=== PATIENT | male | born 1950 | race Caucasian/White ===

== ENCOUNTER 2017-07-16 16:46 | Emergency (ER) | payer OTHER ==
[~2017-07-16] VITALS: Ht 180.3 cm; Wt 92.1 kg
[2017-07-16] MEDS ORDERED: INDAPAMIDE1.25 MG PO (17:07)
[2017-07-16] MEDS ORDERED: HYZAAR 50-12.51 EACH PO (17:08)
[2017-07-16] MEDS ORDERED: CARDIZEM CD180 MG PO (17:08)
[2017-07-16] MEDS ORDERED: LOPRESSOR50 PO (17:08)
[2017-07-16 17:51] LABS: ABSOLUTE BASOPHILS 0.1 thou/uL (0.0-0.2); ABSOLUTE EOSINOPHILS 0.3 thou/uL (0.0-0.7); ABSOLUTE LYMPHOCYTES 2.6 thou/uL (0.8-5.3); ABSOLUTE MONOCYTES 0.9 thou/uL (0.0-1.2); ABSOLUTE NEUTROPHILS 2.2 thou/uL (1.6-8.1); BASOPHILS 0.9 %; EOSINOPHILS 4.8 %; HEMOGLOBIN 13.9 gm/dL (14.0-18.0); LYMPHOCYTES 43.3 %; MCH 30.6 pg (26.0-34.0); MCHC 34.7 g/dL (28.0-37.0); MCV 88.4 fL (80.0-100.0); MONOCYTES 14.6 %; MPV 7.1 fl. (7.2-11.1); NUCLEATED RBCS 0 /100WBC; PLATELET COUNT* 177 thou/uL (150-400); POLYS 36.4 %; RBC 4.52 mil/uL (4.50-6.00); RDW-CV 13.2 % (10.5-14.5)
[2017-07-16 17:59] LABS: ANION GAP 8 mmol/L (7-16); BUN 15 mg/dL (7-18); CALCIUM 9.2 mg/dL (8.5-10.1); CHLORIDE 101 mmol/L (98-107); CO2 31 mmol/L (21-32); CREATININE 1.1 mg/dL (0.6-1.3); GLUCOSE 119 mg/dL (70-99); POTASSIUM 3.5 mmol/L (3.5-5.1); SODIUM 140 mmol/L (136-145)
[2017-07-16 18:01] LABS: APTT 25.9 Seconds (25.0-31.3); PROTIME 10.1 Seconds (9.20-11.50)
[2017-07-16] MEDS ORDERED: ASPIR 8181 MG PO (18:05)
[2017-07-16 18:06] LABS: ALBUMIN 3.9 g/dL (3.4-5.0); ALKALINE PHOSPHATASE 85 U/L (46-116); LIPASE 202 U/L (73-393); SGOT 22 U/L (15-37); SGPT 35 U/L (30-65); TOTAL BILIRUBIN 0.4 mg/dL (<0.1-1.0); TOTAL PROTEIN 7.9 g/dL (6.4-8.2); TROPONIN-I LEVEL <0.06 ng/mL (<0.06)
[2017-07-16 20:32] VITALS: BP 176/89
--- NOTE | 2017-07-18 06:14 | EKG ---
[place] [address] ELECTROCARDIOGRAM REPORT Name: MISAEL GOMEZ Room: [facility]#: [id number] Admission: 07/16/17 Attend Phys: Discharge: 07/16/17 Date of : 54 Report #: [id number] THIS REPORT FOR: //name// [facility] ED Test Date: 2017-07-16 Test Time: 17:56:12 Pat Name: MISAEL GOMEZ Department: Room: Gender: Neuropathologist: Remy JOHNSON : 1950 Requested By: Jennie Abarca Order Number: [id number] MD: Lorne Licona Measurements Intervals [place] Rate: 70 P: 40 VA: 161 QRS: -27 QRSD: 95 T: 17 QT: 411 QTc: 444 Interpretive Statements Sinus rhythm Borderline left axis deviation Abnormal R-wave progression, late transition Baseline wander in lead(s) V2 No previous ECG available for comparison Electronically Signed On 07-18-2017 6:14:36 DEPUTY CITY CLERK by Lorne Licona [email or web address] <ELECTRONICALLY SIGNED> By: Lorne Licona MD, [facility] 07/18/17 0614 1756 175 Lorne Licona MD, FACC /EPI
== END 2017-07-16 20:32 | disposition home or self-care (01) ==
LOC: M.ERS 16:46
PROVIDERS: Physician Assistant
DX: I10 Essential (primary) hypertension (principal); E11.9 Type 2 diabetes mellitus without complications; Z88.5 Allergy status to narcotic agent; Z88.8 Allergy status to other drugs, medicaments and biological substances

== ENCOUNTER 2017-07-20 21:03 | Emergency (ER) | payer OTHER ==
[~2017-07-20] VITALS: Ht 180.3 cm; Wt 90.7 kg
[~2017-07-20 21:03] MED LIST: ASPIR 8181 MG PO; CARDIZEM CD180 MG PO; HYZAAR 50-12.51 EACH PO; INDAPAMIDE1.25 MG PO; LOPRESSOR50 PO
[2017-07-20] MEDS ORDERED: LABETALOL HCL100 MG PO (21:11)
[2017-07-20] MEDS ORDERED: INDAPAMIDE2.5 MG PO (21:11)
[2017-07-20] MEDS ORDERED: HYZAAR 100-251 EACH PO (22:01)
[2017-07-20] MEDS ORDERED: LABETALOL HCL200 MG PO (22:01)
[2017-07-20 22:14] VITALS: BP 168/84
== END 2017-07-20 22:59 | disposition home or self-care (01) ==
LOC: M.ERS 21:03
DX: I10 Essential (primary) hypertension (principal); E11.9 Type 2 diabetes mellitus without complications; Z88.5 Allergy status to narcotic agent; Z88.8 Allergy status to other drugs, medicaments and biological substances

== ENCOUNTER 2019-04-07 22:19 | Inpatient (IN) | payer OTHER ==
[~2019-04-07] VITALS: Ht 180.3 cm; Wt 91.2 kg
[2019-04-07 22:19] VITALS: BP 152/89
[~2019-04-07 22:19] MED LIST changes: +HYZAAR 100-251 EACH PO; +INDAPAMIDE2.5 MG PO; +LABETALOL HCL100 MG PO; +LABETALOL HCL200 MG PO
[2019-04-07] MEDS ORDERED: METFORMIN HCL500 M3 PO (22:26)
[2019-04-07 22:40] LABS: ABSOLUTE BASOPHILS 0.1 thou/uL (0.0-0.2); ABSOLUTE EOSINOPHILS 0.3 thou/uL (0.0-0.7); ABSOLUTE LYMPHOCYTES 3.8 thou/uL (0.8-5.3); ABSOLUTE MONOCYTES 1.1 thou/uL (0.0-1.2); ABSOLUTE NEUTROPHILS 4.2 thou/uL (1.6-8.1); BASOPHILS 0.8 %; EOSINOPHILS 3.5 %; HEMATOCRIT 39.2 % (42.0-52.0); MCH 30.9 pg (26.0-34.0); MCHC 35.8 g/dL (28.0-37.0); MCV 86.5 fL (80.0-100.0); MONOCYTES 11.1 %; MPV 7.5 fl. (7.2-11.1); NUCLEATED RBCS 0 /100WBC; PLATELET COUNT* 251 thou/uL (150-400); POLYS 44.6 %; RBC 4.53 mil/uL (4.50-6.00); RDW-CV 13.1 % (10.5-14.5); WBC 9.5 thou/uL (4.0-11.0)
[2019-04-07 22:49] LABS: PROTIME 10.1 Seconds (9.20-11.50)
[2019-04-07 22:52] LABS: CALCIUM 9.5 mg/dL (8.5-10.1); CREATININE 1.2 mg/dL (0.6-1.3)
[2019-04-07 23:04] LABS: TOTAL BILIRUBIN 0.4 mg/dL (<0.1-1.0); TOTAL PROTEIN 7.6 g/dL (6.4-8.2)
[2019-04-07 23:05] LABS: POTASSIUM 2.9 mmol/L (3.5-5.1)
[2019-04-08] VITALS (18 sets, daily range): BP systolic 120–166; BP diastolic 65–132
[2019-04-08 08:47] LABS: CHOLESTEROL 183 mg/dL (<200); HDL CHOLESTEROL 44 mg/dL (>40); LDL CHOLESTEROL 112 mg/dL (<100); SERUM ASSESSMENT Clear; TC:HDL 4.2 Ratio (Not establshd); TRIGLYCERIDE 137 mg/dL (<150); VLDL 27 mg/dL (<40)
--- NOTE | 2019-04-08 13:43 | NUR ---
PT RECEIVED FROM ER AT 0800, A&O X4. VSS. CHEST PAIN UNDER CONTROL AT THE MOMENT, PT HAS NITRO PATCH. ADMISSION PROCESS COMPLETED. VOIDS PER URINAL. SELF CARE BATH COMPLETED. NEW IV INSERTED IN LT HAND, 18G. NS AT 100 MLS/HR. PT TO CATH AT 1200.
[2019-04-08 14:51] LABS: AMP/METHAMP Negative (Negative); BARBITURATES Negative (Negative); BENZODIAZEPINES POSITIVE (Negative); COCAINE Negative (Negative); METHADONE Negative (Negative); OPIATES Negative (Negative); PCP Negative (Negative); THC Negative (Negative)
--- NOTE | 2019-04-08 15:34 | NUR ---
RECEIVED FROM CATH AT 1400, CATH SITE CDI, DISTAL PULSES PRESENT. DENIES PAIN. VSS. VOIDED POST CATH. REPORT GIVEN TO GALA ZARAGOZA,TELE.
--- NOTE | 2019-04-08 16:00 | NUR ---
PT TRANSFERRED FROM ICU 2 AT 1530. PT IS ALERT AND ORIENTED X4. DENIES PAIN. VSS. ON ROOM AIR. PT GIVEN WATER AND APPLESAUCE, TOLERATING WITHOUT DIFFICULTY. SEE POST STENT VITALS FOR OTHER DETAILS. FAMILY AT BEDSIDE, CALL LIGHT WITHIN REACH, WILL CONTINUE PLAN OF CARE
--- NOTE | 2019-04-08 17:18 | EKG ---
[place] [address] ELECTROCARDIOGRAM REPORT Name: MISAEL GOMEZ Room: [address] ADM IN .R.#: [id number] Admission: 04/08/19 Attend Phys: Kiara Everett MD Discharge: Date of : 54 Report #: [id number] THIS REPORT FOR: //name// [facility] ED Test Date: 2019-04-07 Test Time: 22:26:07 Pat Name: MISAEL GOMEZ Department: Room: [facility] Gender: M Shooter'S Helper: Dave Puckett : 1950 Requested By: Lilian Hyman Order Number: [id number] MD: Lorne Licona Measurements Intervals [place] Rate: 57 P: 63 [place]: 182 QRS: -31 QRSD: 105 T: 29 QT: 431 QTc: 420 Interpretive Statements Sinus rhythm Left axis deviation Borderline repolarization abnormality Baseline wander in lead(s) V4,V5 Compared to ECG 07/16/2017 17:56:12 No significant changes Electronically Signed On 04-08-2019 17:18:50 REINFORCED IRONWORKER by Lorne Licona [email or web address] <ELECTRONICALLY SIGNED> By: Lorne Licona MD, FACC 04/08/19 1718 2226 2226 Lorne Licona MD, FAC /EPI
--- NOTE | 2019-04-08 17:31 | EKG ---
[place] [address] ELECTROCARDIOGRAM REPORT Name: MISAEL GOMEZ Room: [address] ADM IN M.R.#: [id number] Admission: 04/08/19 Attend Phys: Kiara Everett MD Discharge: Date of : 54 Report #: [id number] THIS REPORT FOR: //name// [facility] Test Date: 2019-04-08 Test Time: 16:14:02 Pat Name: MISAEL GOMEZ Department: Room: [address] Gender: M Image Assembler: : 1950 Requested By: Lorne Licona Order Number: [id number] Reading MD: Lorne Licona Measurements Intervals [place] Rate: 56 P: 37 NM: 166 QRS: -26 QRSD: 100 T: -18 QT: 439 QTc: 424 Interpretive Statements Sinus rhythm Borderline left axis deviation Borderline repolarization abnormality Compared to ECG 07/16/2017 17:56:12 No significant changes Electronically Signed On 04-08-2019 17:31:42 PHYSICIAN SCIENTIST by Lorne Licona [email or web address] <ELECTRONICALLY SIGNED> By: Lorne Licona MD, [facility] 04/08/19 1731 1614 1614 Lorne Licona MD, FAC /EPI
[2019-04-09] VITALS: BP 140/78
[2019-04-09 02:06] LABS: GLYCOHEMOGLOBIN (HGB A1C) 6.8 % (4.8-5.6)
[2019-04-09 05:49] LABS: HEMATOCRIT 37.3 % (42.0-52.0); HEMOGLOBIN 13.2 gm/dL (14.0-18.0); MCH 31.1 pg (26.0-34.0); MCHC 35.4 g/dL (28.0-37.0); MCV 87.7 fL (80.0-100.0); MPV 7.8 fl. (7.2-11.1); RBC 4.26 mil/uL (4.50-6.00); RDW-CV 13.5 % (10.5-14.5); WBC 10.5 thou/uL (4.0-11.0)
[2019-04-09 06:04] LABS: ALBUMIN 3.5 g/dL (3.4-5.0); CALCIUM 8.6 mg/dL (8.5-10.1); CREATININE 1.2 mg/dL (0.6-1.3); POTASSIUM 3.1 mmol/L (3.5-5.1); TOTAL BILIRUBIN 0.4 mg/dL (<0.1-1.0); TOTAL PROTEIN 6.8 g/dL (6.4-8.2)
--- NOTE | 2019-04-09 06:26 | NUR ---
PT C/O NUMBNESS TO RIGHT ARM THAT I HAD BELIEVED TO BE RELATIVE TO EXSISTING CONDITION. UPON FURTHER ASSESSMENT THIS WAS NEW ONSET. PT THEN REPORTED THAT HE MISUNDERSTOOD HOW LONG HE HAD TO LAY FLAT AND AFTER EDUCATED AGAIN WAS ABLE TO GAIN COMFORT AND INCREASED SENSATION IN RIGHT ARM. PT DRESSING TO R GROIN HAS REMANIED INTACT, CLEAN AND DRY. VSS. PT PROGRESSING TOWRADS GOALS.
[2019-04-09 07:00] VITALS: BP 142/80
--- NOTE | 2019-04-09 08:18 | CON ---
[address] [address] CONSULTATION Name: MISAEL GOMEZ LORNE Room: [address] IN M.R.#: [id number] Admission: 04/08/19 Attend Phys: Kiara Everett MD Discharge: Date of : 54 Report #: [id number] THIS REPORT FOR: //name// CC: Kiara Dawn MD DATE OF SERVICE: 04/08/2019 INDICATION: Chest pain. HISTORY OF PRESENT ILLNESS: The patient is a very pleasant 68-year-old gentleman with no prior cardiac history. Risk factors include family history of coronary artery disease, hypertension and type 2 diabetes mellitus. He is a nonsmoker. Cholesterol status unknown. For the last couple of weeks, he has been having exertional midsternal chest pressure, radiating to both arms, causing significant arm weakness. The discomfort is relieved with rest. The patient was instructed by his primary physician to report to the Emergency Room should he have recurrence, which he did last night. Again, these symptoms were limited in duration. His troponins are unremarkable. EKG shows sinus rhythm with subtle ST-segment depression in the anterolateral leads. At the time of interview, he is pain free. Only other complaint at this time is that he has been having some indigestion for some time, which he takes Tums for. PAST SURGICAL HISTORY: There is no past surgical history. PAST MEDICAL HISTORY: Hypertension and type 2 diabetes mellitus. SOCIAL HISTORY: The patient does not smoke. He does not drink alcohol. He is . His is in attendance with him. FAMILY HISTORY: The patient's father had myocardial infarction. PHYSICAL EXAMINATION: VITAL SIGNS: Stable. Blood pressure 142/72, pulse 54 and regular. GENERAL: This is a pleasant gentleman who is in no distress. Mood and affect appropriate. HEENT: Extraocular muscles intact. Mucous membranes are moist. NECK: Shows no jugular venous distention. There are no carotid bruits. CHEST: Reveals clear lung pratt. CARDIOVASCULAR: Reveals a regular rhythm without gallop or murmur. ABDOMEN: Reveals normal bowel sounds. The abdomen is soft, nontender. EXTREMITIES: [place] [address] CONSULTATION Name: MISAEL GOMEZ Room: [address] IN [facility]#: [id number] Admission: 04/08/19 Attend Phys: Kiara Everett MD Discharge: Date of : 54 Report #: [id number] LABORATORY DATA: EKG shows sinus rhythm with subtle ST-segment depression in the anterolateral leads. There is no ST elevation. Chest x-ray shows no acute process. Labs are reviewed. Sodium 140, potassium 2.9, chloride 101, bicarb 29, BUN 19, creatinine 1.2, serum glucose 106. LFTs are within normal limits. Troponins less than 0.06 on 2 separate occasions. NT-proBNP 112. White blood cell count 9.5, hemoglobin 14.0, platelet count 251,000. IMPRESSION AND RECOMMENDATIONS: 1. Typical angina with unstable in characteristics. We will proceed with angiography and intervention as directed. Start daily aspirin. 2. Lipid status unknown, request a fasting lipid profile. 3. Hypertension, adequately controlled presently. We will adjust medications post-catheterization if needed. 4. Type 2 diabetes per primary physician. The patient is on metformin. This will be held transiently post-catheterization. 5. Hypokalemia. We will correct with oral potassium this morning. <ELECTRONICALLY SIGNED> By: Lorne Licona MD, FACC 04/09/19817 0838Micestelita Licona MD, FACC /nt
--- NOTE | 2019-04-09 08:28 | NUR ---
INITAL ASSESSMENT COMPLETED CHARTED. VSS. TRACING SR ON MONITOR. PT C/O RIGHT ARM WEAKNESS, MS NOTIFIED. PT DENIES PAIN, SOA, N/V/D. PT DENIES ANY FURTHER NEEDS AT THIS TIME. HOURLY ROUNDING IN PLACE FOR PT SAFETY. CLWR.
[2019-04-09 09:13] LABS: HEMOGLOBIN 13.6 gm/dL (14.0-18.0); MCH 31.1 pg (26.0-34.0); MCHC 35.8 g/dL (28.0-37.0); MCV 86.9 fL (80.0-100.0); MPV 7.2 fl. (7.2-11.1); RBC 4.37 mil/uL (4.50-6.00); RDW-CV 13.2 % (10.5-14.5); WBC 14.3 thou/uL (4.0-11.0)
[2019-04-09 09:21] LABS: CALCIUM 8.9 mg/dL (8.5-10.1); CREATININE 1.5 mg/dL (0.6-1.3); POTASSIUM 3.4 mmol/L (3.5-5.1)
[2019-04-09 09:24] LABS: APTT 23.6 Seconds (25.0-31.3); INR 1.1
[2019-04-09 09:31] LABS: ALBUMIN 3.7 g/dL (3.4-5.0); TOTAL BILIRUBIN 0.4 mg/dL (<0.1-1.0); TOTAL PROTEIN 7.2 g/dL (6.4-8.2)
--- NOTE | 2019-04-09 10:39 | EKG ---
[place] [address] ELECTROCARDIOGRAM REPORT Name: MISAEL GOMEZ Room: [address] ADM IN M.R.#: [id number] Admission: 04/08/19 Attend Phys: Kiara Everett MD Discharge: Date of : 54 Report #: [id number] THIS REPORT FOR: //name// [facility] Test Date: 2019-04-09 Test Time: 05:50:10 Pat Name: MISAEL GOMEZ Department: Room: [address] Gender: M Bucket Turner: CKLOTZ : 1950 Requested By: Lorne Licona Order Number: [id number] Monica MD: Harvey Lemus Measurements Intervals [place] Rate: 72 P: 37 [place]: 165 QRS: -23 QRSD: 101 T: -70 QT: 429 QTc: 470 Interpretive Statements Sinus rhythm Borderline left axis deviation Repol abnrm suggests ischemia, lateral leads Compared to ECG 04/08/2019 16:14:02 Possible ischemia now present Electronically Signed On 04-09-2019 10:39:38 MEETING/EVENT PLANNER by Harvey Lemus [email or web address] <ELECTRONICALLY SIGNED> By: Harvey Lemus MD, [facility] 04/09/19 1039 0550 0550 Harvey Lemus MD, [facility] /EPI
--- NOTE | 2019-04-09 14:05 | 2DMMODE ---
[place] [address] 2 D/M-MODE ECHOCARDIOGRAM Name: MISAEL GOMEZ Room: [address] IN [facility]#: [id number] Admission: 04/08/19 Attend Phys: Kiara Everett, Discharge: Date of : 54 Date of Service: 04/09/19 1405 Report #: [id number] THIS REPORT FOR: //name// APPROVED REPORT Study performed: 04/09/2019 10:59:00 EXAM: Comprehensive 2D, Doppler, and color-flow Echocardiogram Patient Location: In-Patient Room #: 200 Status: routine BSA: 2.11 HR: 72 bpm BP: 142/80 mmHg Rhythm: NSR Other Information Study Quality: Good Indications CVA/TIA Chest Pain Echo Enhancing Agent Indication: Rule out Shunt Agent(s) / Amount(s) Used: Agitated Saline 10 cc 2D Dimensions IVSd: 14.89 (7-11mm) LVOT Diam: 19.56 (18-24mm) LVDd: 42.18 mm PWd: 11.55 (7-11mm) Ascending Ao: 34.52 (22-36mm) LVDs: 21.09 (25-40mm) Aortic Root: 32.44 mm Volumes Left Atrial Volume (Systole) LA ESV Index: 34.70 mL/m2 Aortic Valve AoV Peak Matthew.: 1.75 m/s AO Peak Gr.: 12.22 mmHg LVOT Max P.70 mmHg AO Mean Gr.: 6.97 mmHg LVOT Mean P.98 mmHg LVOT Max V: 1.39 m/s AO V2 VTI: 34.44 cm LVOT Mean V: 0.78 m/s JACOB (VTI): 2.94 cm2 LVOT V1 VTI: 33.66 [place] [address] 2 D/M-MODE ECHOCARDIOGRAM Name: MISAEL GOMEZ Room: [address] IN ..#: [id number] Admission: 04/08/19 Attend Phys: Kiara Everett, Discharge: Date of : 54 Date of Service: 04/09/19 1405 Report #: [id number] Mitral Valve E/A Ratio: 0.79 MV Decel. Time: 310.79 ms MV E Max Matthew.: 0.56 m/s MV PHT: 90.13 ms MVA (PHT): 2.44 cm2 TDI E/Lateral E': 6.22 E/Medial E': 3.73 Medial E' Matthew.: 0.15 m/s Lateral E' Matthew.: 0.09 m/s Pulmonary Valve PV Peak Matthew.: 1.34 m/s PV Peak Gr.: 7.16 mmHg Tricuspid Valve RAP Estimate: 5.00 mmHg TR Peak Gr.: 24.26 mmHg RVSP: 29.00 mmHg PA Pressure: 29.00 mmHg Left Ventricle The left ventricle is normal size. There is normal LV segmental wall motion. Borderline concentric left ventricular hypertrophy. Left ventricular systolic function is normal. The left ventricular ejection fraction is within the normal range. LVEF is 60-65%. Grade I - abnormal relaxation pattern. Right Ventricle The right ventricle is normal size. The right ventricular systolic function is normal. Atria The left atrium size is normal. Interatrial septum is intact without evidence of ASD or PFO. The right atrium size is normal. Aortic Valve Mild aortic valve sclerosis. No aortic regurgitation is present. There is no aortic valvular stenosis. Mitral Valve The mitral valve is normal in structure. There is no mitral valve regurgitation noted. No evidence of mitral valve stenosis. Tricuspid Valve The tricuspid valve is [place] [address] 2 D/M-MODE ECHOCARDIOGRAM Name: MISAEL GOMEZ Room: [address] IN ..#: [id number] Admission: 04/08/19 Attend Phys: Kiara Everett, Discharge: Date of : 54 Date of Service: 04/09/19 1405 Report #: [id number] regurgitation. No pulmonary hypertension. Pulmonic Valve The pulmonary valve is normal in structure. There is no pulmonic valvular regurgitation. Great Vessels The aortic root is normal in size. IVC is normal in size and collapses >50% with inspiration. Pericardium There is no pericardial effusion. <Conclusion> The left ventricle is normal size. Borderline concentric left ventricular hypertrophy. Left ventricular systolic function is normal. The left ventricular ejection fraction is within the normal range. LVEF is 60-65%. Grade I - abnormal relaxation pattern. The right ventricle is normal size. The left atrium size is normal. Mild aortic valve sclerosis. No aortic regurgitation is present. There is no aortic valvular stenosis. The mitral valve is normal in structure. The tricuspid valve is normal in structure. IVC is normal in size and collapses >50% with inspiration. There is no pericardial effusion. There is normal LV segmental wall motion. Interatrial septum is intact without evidence of ASD or PFO. <ELECTRONICALLY SIGNED> By: Harvey Lemus MD, FACC 04/09/19 1405 1405 1405 Harvey Lemus MD, FACC /INF
--- NOTE | 2019-04-09 14:53 | NUR ---
Pt is A&O. Resides at home with . Normally active and independent. No DME. No hx of HH or SNF. Goal is home at pa. Following.
--- NOTE | 2019-04-09 15:36 | CARD ---
[address] [address] CARDIAC CATH REPORT Name: MISAEL GOMEZ Room: 200- ADM IN M.R.#: [id number] Admission: 04/08/19 Attend Phys: Kiara Everett MD Discharge: Date of : 54 Report #: [id number] THIS REPORT FOR: //name// ADDENDUM APPROVED REPORT Study performed: 04/08/2019 11:44:56 Patient Details Patient Status: In-Patient Room #: The patient is a 68 year-old male Event Personnel Lorne Licona Professional Development Instructor, Harvey Lemus Cnc Machine Programmer, Candy Taylor RN Supply Specialist, Robert Hussein VALUE ANALYSIS COORDINATOR Scrub, Ayana Dubose RTR Monitor Procedures Performed Art Access - R femoral artery* Left Heart Cath w/or w/o Coronaries [id number] [facility] w/wo Plasty Single CIRC [id number] [facility] Place w/wo Plasty Single RCA [id number] Hemostasis w/ Angioseal Admission/Lab Medications/Medications given during procedure Angiomax IV 13.9 mg per kg, Angiomax Drip IV 30.8 ml per hr, Solumedrol IV 125 mg, Atropine IV 1 ml, Aspirin PO 162 mg, Effient PO 60 mg, Nitroglycerin IC bolus 350 mcg total Procedure Narrative The patient was brought electively to the Cardiac Catheterization Laboratory and was prepped and draped in a sterile manner. The right femoral groin area was infiltrated with 2% Lidocaine subcutaneous anesthesia. A 6fr Ultimum Sheath sheath was inserted into the right femoral artery. Coronary angiography was performed using coronary diagnostic catheters. The right coronary system was accessed and visualized with a 6F JR4 catheter. The left coronary system was accessed and visualized with a 6F JL4 catheter. The left ventricle was accessed and visualized with a 6F Pigtail catheter. The patient tolerated the procedure well and there were no complications associated with the procedure. Intraoperative Conscious Sedation Sedation start time: 12:32 Case end Time: 13:35 Fentanyl 100 mcg Versed 2 mg Fluoro Time: 17.1 [place] [address] CARDIAC CATH REPORT Name: MISAEL GOMEZ Room: [address] IN [facility]#: [id number] Admission: 04/08/19 Attend Phys: Kiara Everett MD Discharge: Date of : 54 Report #: [id number] Dose: DAP [id number] cGycm2 2376 mGy Contrast Type and Amount: Visipaque 390 ml Coronary Angiography The patient's coronary anatomy is right dominant. Diagnostic Cath Left Main The left main coronary artery is normal and bifurcates into a left anterior descending and circumflex coronary artery. LAD Left anterior descending coronary artery is mildly plaqued proximally and has a 70% narrowing at the takeoff of a second diagonal branch. Diagonal 1 The first diagonal branch is normal. Diagonal 2 The second diagonal branch has a proximal 70% ostial stenosis. Circumflex The circumflex was coronary artery is mildly plaqued proximally and approximately 30% narrowing distally. OM1 The first obtuse marginal branch is moderately plaqued up to 40% proximally. OM2 The large branched second obtuse marginal branch has a long area of severe disease proximally up to 99%. OM3 A small third obtuse marginal branch is normal. Right Coronary The right coronary artery has a long area of severe stenosis up to 99% just after the takeoff of an acute marginal branch. R PDA PDA is mildly plaqued without hemodynamically significant stenoses. RPLV A small posterior lateral LV branch is free of significant disease. Left Ventriculography The left ventricle is normal in size with normal contractility. The left ventricular ejection fraction is estimated to be 55-60%. Hemodynamics The aortic pressure is 143/62 mmHg with a mean of 67 mmHg. The left ventricular pressure is 153/12 mmHg with a mean of mmHg. The left ventricular end diastolic pressure is 22 mmHg. PCI Technique Lesion Anticoagulation was achieved with Angiomax. Patient was preloaded with Angiomax IV 13.9 mg per kg. Percutaneous coronary intervention was performed on the second marginal branch of the circumflex. The lesion stenosis prior to intervention was 99% with SVETLANA 3 flow. A 6F XB LAD 3.5 Guide Catheter was used to engage [place] [address] CARDIAC CATH REPORT Name: MISAEL GOMEZ Room: [address] IN M.R.#: [id number] Admission: 04/08/19 Attend Phys: Kiara Everett MD Discharge: Date of : 54 Report #: [id number] 190cm Interventional Guidewire was used to cross the lesion. BALLOON DILATION A Balloon catheter Mini Trek RX 2.0 X 12 was inserted and inflated up to 10.00atm for 14seconds. Additional Inflation: 12.00atm for 10seconds. Additional Inflation: 12.00atm for 9seconds. STENT DEPLOYMENT A drug-eluting stent Jerson RX Stent 2.0X30mm was inserted and inflated up to 12.00atm for 11seconds. Additional Inflation: 15.00atm for 12seconds. Additional Inflation: 15.00atm for 10seconds. POST STENT DEPLOYMENT BALLOON DILATION A Balloon catheter NC Trek RX 2.25x12 was inserted and inflated up to 10.00atm for 12seconds. Additional Inflation: 12.00atm for 7seconds. Additional Inflation: 14.00atm for 6seconds. Final angiography reveals 0 % stenosis with SVETLANA 3 flow. STENT DEPLOYMENT A stent was inserted and inflated up to marium for seconds. Additional Inflation: marium for seconds. POST STENT DEPLOYMENT BALLOON DILATION A Balloon catheter was inserted and inflated up to marium for seconds. Additional Inflation: marium for seconds. Additional Inflation: marium for 6seconds. PCI Technique Lesion 2 Percutaneous Coronary Intervention was performed on the mid right coronary artery. The lesion stenosis prior to intervention was 99% with SVETLANA 3 flow. A 6Fr JR 4.0 SH Guide Catheter was used to engage the ostium. A ProwaterFlex 180CM Interventional Guidewire was used to cross the lesion. Balloon Dilation A Balloon catheter Mini Trek RX 2.0 X 12 was inserted and inflated up to 12atm for 15seconds. Additional Inflation: 12atm for 8seconds. Additional Inflation: 14atm for 5seconds. Same 2.0x12 RX Mini Trek balloon to mid RCA for pre dilation. Inflated 12 marium, 15 seconds; 12 marium, 8 seconds; 14 marium, 5 seconds. Stent Deployment A drug-eluting stent Almont RX Stent 2.45G23pv was inserted and inflated up to 12atm for 12seconds. Additional Inflation: 12atm for 6seconds. A drug eluting Jerson RX Stetn 2.25x30 [place] [address] CARDIAC CATH REPORT Name: MISAEL GOMEZ Room: [address] IN ..#: [id number] Admission: 04/08/19 Attend Phys: Kiara Everett MD Discharge: Date of : 54 Report #: [id number] 12 marium, 12 seconds; 12 marium, 6 seconds. Post Stent Deployment Balloon Dilation A Balloon catheter NC Trek RX 2.25x12 was inserted and inflated up to 12atm for 7seconds. Additional Inflation: 14atm for 4seconds. Additional Inflation: 15atm for 6seconds. Same 2.25x12 Rx NC Trek balloon to mid RCA post dilation. Inflate 12 marium, 7 seconds; 14 marium, 4 seconds; 15 marium, 6 seconds. Final angiography reveals 0 % stenosis with SVETLANA 3 flow. Conclusion 1. Significant three-vessel coronary artery disease as outlined above. 2. Critical stenoses noted in a large second obtuse marginal branch and mid to distal right coronary artery. 3. Normal LV systolic function. 4. Normal left ventricular end-diastolic pressure. 5. Successful PCI with deployment of drug-eluting stent in the second marginal branch of the circumflex with 0% residual narrowing 6. Successful PCI with deployment of a drug-eluting stent at the site of 99% mid right coronary stenosis with 0% residual narrowing Recommendations 1. Continue aggressive risk factor modification. 2. Percutaneous coronary intervention to the critical stenoses noted in the right coronary artery and second obtuse marginal branch. 3. Consider staged procedure to the mid to distal left anterior descending coronary artery. Medications Administered Aspirin (any) Prasugrel Diagnostic Cath Approved by: Lorne Licona MD Date/Time: 04/09/2019 15:35:18 <ELECTRONICALLY SIGNED> By: Harvey Lemus MD, [facility] 04/09/19 1535 1535 1535Harvey Lemus MD, FAC /INF
--- NOTE | 2019-04-09 15:43 | EKG ---
[place] [address] ELECTROCARDIOGRAM REPORT Name: MISAEL GOMEZ Room: [address] ADM IN M.R.#: [id number] Admission: 04/08/19 Attend Phys: Kiara Everett MD Discharge: Date of : 54 Report #: [id number] THIS REPORT FOR: //name// [facility] Test Date: 2019-04-09 Test Time: 14:09:51 Pat Name: MISAEL GOMEZ Department: Room: [address] Gender: M Biomass Facilitator: : 1950 Requested By: Butser Licea Order Number: [id number] Monica MD: Harvey Lemus Measurements Intervals [place] Rate: 71 P: 55 [place]: 167 QRS: -30 QRSD: 96 T: -50 QT: 415 QTc: 451 Interpretive Statements Sinus rhythm Left axis deviation Abnormal T, consider ischemia, diffuse leads Baseline wander in lead(s) V1 Compared to ECG 04/09/2019 05:50:10 T-wave abnormality now present Early repolarization no longer present Possible ischemia still present Electronically Signed On 04-09-2019 15:43:36 SUSTAINABILITY CONSULTANT by Harvey Lemus [email or web address] <ELECTRONICALLY SIGNED> By: Harvey Lemus MD, [facility] 04/09/19 1543 1409 1409 Harvey Lemus MD, [facility] /EPI
[2019-04-09 16:00] VITALS: BP 156/76
[2019-04-09 20:00] VITALS: BP 151/58; BP 155/79
[2019-04-10] VITALS: BP 140/63
[2019-04-10 04:00] VITALS: BP 155/68
[2019-04-10 07:41] VITALS: BP 162/88
[2019-04-10 10:59] VITALS: BP 148/79
--- NOTE | 2019-04-10 11:21 | NUR ---
Director Of Business Systems: Met with patient and family. Reviewed stroke program. Discussed signs and symptoms of stroke and when to call 911. Pt and family understands. No other concerns at this time.
[2019-04-10] MEDS ORDERED: NITROGLYCERIN0.4 MG SUBLING (12:03)
[2019-04-10] MEDS ORDERED: LIPITOR40 MG PO (12:03)
[2019-04-10] MEDS ORDERED: POTASSIUM20 PO (12:03)
[2019-04-10] MEDS ORDERED: COREG25 MG PO (12:03)
[2019-04-10] MEDS ORDERED: EFFIENT10 MG PO (12:03)
--- NOTE | 2019-04-10 12:19 | NUR ---
PT A/O. TELE TRACKING SR AND ALL VSS ON ROOM AIR. NIH 0. DENIES CP, SOA. CATH SITE WNL. PT LOOKING FORWARD TO DC LATER TODAY. EDUCATED ON SAFETY AND PLAN OF CARE. PLEASE SEE ASSESSMENT FOR ADDITIONAL INFORMATION. WILL CONT TO MONIOTR
[2019-04-10] MEDS ORDERED: MINOCYCLINE HC100 M2 PO (12:57)
[2019-04-10 13:00] VITALS: BP 148/79
--- NOTE | 2019-04-11 12:46 | CON ---
[address] [address] CONSULTATION Name: MISAEL GOMEZ Room: [address] M.R.#: [id number] Admission: 04/08/19 Attend Phys: Kiara Everett MD Discharge: 04/10/19 Date of : 54 Report #: [id number] THIS REPORT FOR: //name// CC: Kiara Danw DATE OF SERVICE: 04/09/2019 HISTORY OF PRESENT ILLNESS: This is a 68-year-old male patient, who was seen by me for weakness on the right side. This patient presented with some chest pain, which radiated to the back and to some extent to arm. He underwent procedure by professor of geography and then he noticed he was weak on the right side. He had an MRI of the brain done and that showed a small stroke in the left frontal area. He did have a carotid Doppler, which showed some blocking, but no hemodynamically significant stenosis. His deficit appeared to be stable. I talked to professor of geography and they indicated that this patient will be on dual antiplatelet therapy. The patient's symptoms have become much better and his weakness on the right side is improved. REVIEW OF SYSTEMS: Positive for cardiac problem for which he is being managed here. It does look like his lipid profile is abnormal. He is on dual platelet therapy from the cardiac perspective. PAST MEDICAL HISTORY: Negative for stroke. FAMILY HISTORY: Unremarkable. SOCIAL HISTORY: He has a pretty supportive family and they were there. PHYSICAL EXAMINATION: Indicates he is alert and responsive, can follow simple command. His speech, concentration, fund of knowledge and memory are at his baseline. Cranial nerve examination 2-12 looks mostly unremarkable, but he is weak in the right side. He is weak in the right upper and right lower extremity. His position sense may be altered to some extent. He does have difficulty with the walking. I could not look at the fundus. There is no meningeal sign. Cardiac and respiratory examination is unremarkable. Blood pressure is 148/81, pulse is 65, and temperature is 97.5. LABORATORY DATA: Indicate a white count of 14.3. His blood sugar is uncontrolled. IMPRESSION: 1. Small cerebrovascular accident. 2. Diabetes. 3. [place] [address] CONSULTATION Name: MISAEL GOMEZ Room: [address] [facility]#: [id number] Admission: 04/08/19 Attend Phys: Kiara Everett MD Discharge: 04/10/19 Date of : 54 Report #: [id number] RECOMMENDATIONS: 1. PT, OT. 2. Tightly controlling the vascular risk factors including dyslipidemia. 3. Antithrombotic therapy as per Cardiology. About 50 minutes of time was spent taking care of this patient today and majority was counseling and coordinating. <ELECTRONICALLY SIGNED> By: Jacob Artis MD 04/11/19 1246 1448 1949Jacob Artis MD /marisel
== END 2019-04-10 13:54 | disposition home or self-care (01) | DRG 246 ==
LOC: M.ERS 22:19 → M.ICU 04-08 00:04 → M.2W 04-08 00:04 → M.TBA-ER 04-08 00:04 → M.ICU 04-08 07:46 → M.2W 04-08 15:15
PROVIDERS: Emergency Medicine; Family Medicine; Internal Medicine; Internal Medicine Cardiovascular Disease; ADMIT Internal Medicine
PROC: 4A023N7 Measurement of Cardiac Sampling and Pressure, Left Heart, Percutaneous Approach (ICD-10-PCS; principal; 2019-04-08)
PROC: B215YZZ Fluoroscopy of Left Heart using Other Contrast (ICD-10-PCS; principal; 2019-04-08)
PROC: B211YZZ Fluoroscopy of Multiple Coronary Arteries using Other Contrast (ICD-10-PCS; principal; 2019-04-08)
PROC: 027135Z Dilation of Coronary Artery, Two Arteries with Two Drug-eluting Intraluminal Devices, Percutaneous Approach (ICD-10-PCS; principal; 2019-04-08)
DX: I25.110 Atherosclerotic heart disease of native coronary artery with unstable angina pectoris (principal); I50.33 Acute on chronic diastolic (congestive) heart failure; I63.9 Cerebral infarction, unspecified; E11.9 Type 2 diabetes mellitus without complications; E87.6 Hypokalemia; I11.0 Hypertensive heart disease with heart failure; E78.5 Hyperlipidemia, unspecified; Z82.49 Family history of ischemic heart disease and other diseases of the circulatory system; Z88.6 Allergy status to analgesic agent; Z88.8 Allergy status to other drugs, medicaments and biological substances; Z79.899 Other long term (current) drug therapy

== ENCOUNTER 2019-04-24 10:14 | Observation (INO) | payer OTHER ==
[2019-04-24] VITALS (12 sets, daily range): BP systolic 125–139; BP diastolic 67–83
[~2019-04-24] VITALS: Ht 180.3 cm; Wt 84.8 kg
[~2019-04-24 10:14] MED LIST changes: +COREG25 MG PO; +EFFIENT10 MG PO; +LIPITOR40 MG PO; +METFORMIN HCL500 M3 PO; +MINOCYCLINE HC100 M2 PO; +NITROGLYCERIN0.4 MG SUBLING; +POTASSIUM20 PO
--- NOTE | 2019-04-24 11:41 | EKG ---
[place] [address] ELECTROCARDIOGRAM REPORT Name: PATRICIAMIASEL Room: [facility]#: [id number] Admission: 04/24/19 Attend Phys: Lorne Licona MD Discharge: Date of : 54 Report #: [id number] THIS REPORT FOR: //name// [facility] Test Date: 2019-04-24 Test Time: 11:21:09 Pat Name: MISAEL GOMEZ Department: Room: Gender: M Filenet Architect: : 1950 Requested By: Harvey Lemus Order Number: [id number] Reading MD: Lorne Licona Measurements Intervals [place] Rate: 57 P: 50 ND: 164 QRS: -30 QRSD: 94 T: 1 QT: 427 QTc: 416 Interpretive Statements Sinus rhythm Left axis deviation Compared to ECG 04/09/2019 14:09:51 T-wave abnormality no longer present Possible ischemia no longer present Electronically Signed On 04-24-2019 11:40:57 CARBON GRINDER by Lorne Licona [email or web address] <ELECTRONICALLY SIGNED> By: Lorne Licona MD, [facility] 04/24/19 1140 112 20 Lorne Licona MD, FACC /EPI
[2019-04-24 11:49] LABS: HEMATOCRIT 37.7 % (42.0-52.0); HEMOGLOBIN 13.4 gm/dL (14.0-18.0); MCH 30.6 pg (26.0-34.0); MCHC 35.6 g/dL (28.0-37.0); MCV 85.8 fL (80.0-100.0); RBC 4.4 mil/uL (4.50-6.00); RDW-CV 13.3 % (10.5-14.5); WBC 6.6 thou/uL (4.0-11.0)
[2019-04-24 11:58] LABS: ANION GAP 12 mmol/L (7-16); BUN 20 mg/dL (7-18); CALCIUM 9.9 mg/dL (8.5-10.1); CHLORIDE 103 mmol/L (98-107); CO2 26 mmol/L (21-32); CREATININE 1.5 mg/dL (0.6-1.3); GLUCOSE 136 mg/dL (70-99); POTASSIUM 3.4 mmol/L (3.5-5.1); SODIUM 141 mmol/L (136-145)
[2019-04-24 11:59] LABS: APTT 25.5 Seconds (25.0-31.3); INR 1.1; PROTIME 10.8 Seconds (9.20-11.50)
[2019-04-24 12:03] LABS: ALKALINE PHOSPHATASE 63 U/L (46-116); CHOLESTEROL 119 mg/dL (<200); HDL CHOLESTEROL 45 mg/dL (>40); LDL CHOLESTEROL 53 mg/dL (<100); SERUM ASSESSMENT Clear; SGOT 26 U/L (15-37); SGPT 39 U/L (30-65); TC:HDL 2.6 Ratio (Not establshd); TOTAL BILIRUBIN 0.7 mg/dL (<0.1-1.0); TOTAL PROTEIN 7.6 g/dL (6.4-8.2); TRIGLYCERIDE 106 mg/dL (<150); VLDL 21 mg/dL (<40)
--- NOTE | 2019-04-24 15:46 | EKG ---
[place] [address] ELECTROCARDIOGRAM REPORT Name: MISAEL GOMEZ Room: [address] M.R.#: [id number] Admission: 04/24/19 Attend Phys: Lorne Licona MD Discharge: Date of : 54 Report #: [id number] THIS REPORT FOR: //name// [facility] Test Date: 2019-04-24 Test Time: 14:44:49 Pat Name: MISAEL GOMEZ Department: Room: [address] Gender: M Cotton Ginner: : 1950 Requested By: Lorne Licona Order Number: [id number] Reading MD: Lorne Licona Measurements Intervals [place] Rate: 57 P: 45 IN: 163 QRS: -37 QRSD: 94 T: -5 QT: 432 QTc: 421 Interpretive Statements Sinus rhythm Left axis deviation Abnormal R-wave progression, late transition Borderline T abnormalities, inferior leads Compared to ECG 04/24/2019 11:21:09 T-wave abnormality now present Electronically Signed On 04-24-2019 15:46:32 CODER by Lorne Licona [email or web address] <ELECTRONICALLY SIGNED> By: Lorne Licona MD, FACC 04/24/19 1546 1444 1444 Lorne Licona MD, [facility] /EPI
--- NOTE | 2019-04-24 17:10 | NUR ---
pt admitted on tele floor from quality control lab technician. pt is aox4. on ra. o2 sat 100%. r groin site is intact. no bledding. dressing dry.ns infusing at 100 per hour. skin intact. urinal provided. food provided. accucheck 167. bedrest until 1814. pt aware. call light at reach. vss. vs being monitored q15 min. see chart. will continue to monitor
--- NOTE | 2019-04-24 17:25 | NUR ---
LOW DOSE SLIDING SCALE OF INSULIN ORDER RECEIVED FROM DR GALDAMEZ WILL FAX ORDER TO PHARMACY.
[2019-04-25 00:16] VITALS: BP 135/64
[2019-04-25 03:49] LABS: CREATININE 1.3 mg/dL (0.6-1.3); POTASSIUM 3.3 mmol/L (3.5-5.1)
[2019-04-25 04:00] VITALS: BP 119/68
--- NOTE | 2019-04-25 04:17 | NUR ---
PT ON TELE AFTER CATH PROCEDURE. R GROIN SITE C/D/I WITH NO PAIN NOTED. UP IN ROOM WITHOUT DIFFICULTY. NO COMPLAINTS NOTED AT THIS TIME. PT CURRENTLY ASLEEP IN BED WITH CALL LIGHT WITHIN REACH, ALL CURRENT NEEDS HAVE BEEN MET.
[2019-04-25 08:22] VITALS: BP 137/83
--- NOTE | 2019-04-25 09:28 | NUR ---
ASSUMED CARE OF PT THIS AM AROUND 0715- APPLIED ANTHROPOLOGIST IN PLACE ORDERED, TRACING SB- UPON ASSESSMENT PT NOTED TO BE RESTING IN BED- PT A&O X4- CONTINENT OF B/B- UP AD-COLTON IN ROOM, STEADY GAIT NOTED- LCTA, RESP EVEN AND UN-LABORED- VSS, O2 SAT 97% ON RA- ABD SOFT/ROUND/NON-TENDER, BS X4 QUADS- GOOD PO INTAKE NOTED THIS AM WITH BREAKFAST, BS MONITORED ORDERED WITH INSULIN PRESCIBED- REPORTS LAST BM 04/24/19- IV NOTED TO RIGHT AC INTACT AND SL-RIGHT GROIN SIGHT C/D/I, NO HEMATOMA NOTED- SENSATION INTACT WITH CAP LESS THAN 3-PT DENIES ANY C/O PAIN/DISCOMFORT AT THIS TIME- CALL LIGHT AND PERSONAL BELONGINGS WITH IN REACH- ALL NEEDS MET AT THIS TIME-WCTM
[2019-04-25 10:00] VITALS: BP 137/83
[2019-04-25 10:05] VITALS: BP 137/83
--- NOTE | 2019-04-25 13:59 | EKG ---
[place] [address] ELECTROCARDIOGRAM REPORT Name: MISAEL GOMEZ Room: [address]#: [id number] Admission: 04/24/19 Attend Phys: Lorne Licona MD Discharge: 04/25/19 Date of : 54 Report #: [id number] THIS REPORT FOR: //name// [facility] Test Date: 2019-04-25 Test Time: 05:06:10 Pat Name: MISAEL GOMEZ Department: Room: [facility] Gender: M Electrician Supervisor: : 1950 Requested By: Lorne Licona Order Number: [id number] Reading MD: Harvey Lemus Measurements Intervals [place] Rate: 58 P: 55 NV: 164 QRS: -22 QRSD: 102 T: 4 QT: 436 QTc: 429 Interpretive Statements Sinus rhythm Borderline left axis deviation Borderline T wave abnormalities Compared to ECG 04/24/2019 14:44:49 No significant changes Electronically Signed On 04-25-2019 13:59:26 LAND AGENT by Harvey Lemus [email or web address] <ELECTRONICALLY SIGNED> By: Harvey Lemus MD, [facility] 04/25/19 1359 0506 0506 Harvey Lemus MD, FACC /EPI
--- NOTE | 2019-04-25 14:41 | CARD ---
[address] [address] CARDIAC CATH REPORT Name: MISAEL GOMEZ Room: [address] Magali Pimentel#: [id number] Admission: 04/24/19 Attend Phys: Lorne Licona MD Discharge: 04/25/19 Date of : 54 Report #: [id number] THIS REPORT FOR: //name// APPROVED REPORT Study performed: 04/24/2019 12:30:45 Patient Details Patient Status: Out-Patient Room #: The patient is a 68 year-old male Event Personnel Lorne Licona Hydroelectric Machinery Mechanic, Harvey Lemus Radio Interference Trouble Shooter, Candy Taylor RN Tobacco Sample Puller, Horacio Henry RTR Scrub, Ayana Dubose RTR Monitor Procedures Performed Art Access - R femoral artery* Left Heart Cath w/or w/o Coronaries [id number] [facility] w/wo Plasty Single LAD 204202 Hemostasis w/ Angioseal , BRANDON Angiogram Indication Positive stress test Risk Factors Hypercholesterolemia Previous Procedures/Diagnoses Previous PCI Admission/Lab Medications/Medications given during procedure Angiomax IV 13 mg per kg, Angiomax Drip IV 29.7 ml per hr, Effient PO 30 mg, Aspirin PO 81 mg Procedure Narrative The patient was brought electively to the Cardiac Catheterization Laboratory and was prepped and draped in a sterile manner. The right femoral was infiltrated with 2% Lidocaine subcutaneous anesthesia. A 6fr Ultimum Sheath sheath was inserted into the right femoral artery. Coronary angiography was performed using coronary diagnostic catheters. The right coronary system was accessed and visualized with a 6F JR4 catheter. The left coronary system was accessed and visualized with a 6F XB LAD 3.5 catheter. Left ventricular/Aortic Valve gradient assessed via catheter pullback. The patient tolerated the procedure well and there [place] [address] CARDIAC CATH REPORT Name: MISAEL GOMEZ [address] [id number] Admission: 04/24/19 Attend Phys: Lorne Licona MD Discharge: 04/25/19 Date of : 54 Report #: [id number] the procedure. Left ventricular pressures were obtained with a 6F JR4 catheter. Intraoperative Conscious Sedation Sedation start time: 13:06 Case end Time: 13:50 Fentanyl 50 mcg Versed 2 mg Fluoro Time: 10.6 minutes Dose: DAP 35051 cGycm2 1635 mGy Contrast Type and Amount: Visipaque 144 ml Diagnostic Cath Left Main 0% narrowing LAD 75% tubular mid LAD stenosis Circumflex Codominant vessel with widely patent distal circumflex stent and 10% distal circumflex narrowing Right Coronary Modest size codominant right coronary artery with a widely patent mid vessel stent and 0% narrowing Left Ventriculography Left Ventriculography was not performed. Hemodynamics The aortic pressure is 177/75 mmHg with a mean of 65 mmHg. The left ventricular pressure is 167/1 mmHg with a mean of mmHg. The left ventricular end diastolic pressure is 19 mmHg. PCI Technique Lesion Anticoagulation was achieved with Angiomax. Patient was preloaded with Angiomax IV 13 mg per kg. Percutaneous coronary intervention was performed on the mid left anterior descending artery segment. The lesion stenosis prior to intervention was 75% with SVETLANA 3 flow. A 6F XB LAD 3.5 Guide Catheter was used to engage the ostium. A IG: [employer] CoFlex 180CM Interventional Guidewire was used to cross the lesion. BALLOON DILATION A Balloon catheter Trek RX 2.25 X 12 was inserted and inflated up to 10.00atm for 7seconds. STENT DEPLOYMENT A drug-eluting stent Jerson RX Stent 2.55T23wa, 2.25x26 jerson was inserted and inflated up to 10.00atm for 7seconds. Additional Inflation: 10.00atm for 6seconds. Additional Inflation: 8.00atm for 6seconds. [place] [address] CARDIAC CATH REPORT Name: MISAEL GOMEZ Room: [address] Magali Pimentel#: [id number] Admission: 04/24/19 Attend Phys: Lorne Licona MD Discharge: 04/25/19 Date of : 54 Report #: [id number] Final angiography reveals 10 % stenosis with SVETLANA 3 flow. Conclusion 1 coronary artery disease characterized by following: A 75% tubular mid LAD stenosis B codominant circumflex with a widely patent distal stent C modest size codominant right coronary artery with a widely patent mid vessel stent #2 moderate systemic systolic hypertension with moderate elevation of left ventricular end-diastolic pressure at rest #3 successful percutaneous coronary intervention with deployment of sequential drug-eluting stents at the site of 75% mid LAD stenosis with 10% residual narrowing and SVETLANA-3 flow the distal vessel Recommendations Cardiac Risk Reduction Program Aggressive Medical Therapy Medications Administered Aspirin (any) Prasugrel Diagnostic Cath Approved by: Lorne Licona MD Date/Time: 04/25/2019 14:37:16 <ELECTRONICALLY SIGNED> By: Harvey Lemus MD, FACC 04/25/19 1441 40 144Harvey Lemus MD, FACC /INF
--- NOTE | 2019-05-06 07:49 | D ---
[facility] [address] [place] [address] DISCHARGE SUMMARY Name: MISAEL GOMEZ Room: [address] Magali Pimentel#: [id number] Admission: 04/24/19 Attend Phys: Lorne Licona MD Discharge: 04/25/19 Date of : 54 Report #: [id number] THIS REPORT FOR: //name// CC: Lorne Dawn MD DATE OF SERVICE: 04/25/2019 DISCHARGE DIAGNOSES: 1. Unstable angina. 2. Coronary artery disease. 3. Hypertension. 4. Hyperlipidemia. 5. Type 2 diabetes mellitus. PROCEDURES DURING HOSPITALIZATION: Percutaneous coronary intervention to the left anterior descending coronary artery with drug-eluting stent placement and PTCA to the diagonal branch. HOSPITAL COURSE: The patient was brought to the cardiac catheterization lab with continued chest discomfort. He had a known LAD stenosis for which he underwent percutaneous coronary intervention without complication. A drug-eluting stent was placed. He is on dual antiplatelet therapy. He is being discharged uneventfully. DISCHARGE MEDICATIONS: Will include carvedilol 25 mg p.o. b.i.d., potassium 20 mEq daily, hydrochlorothiazide 12.5 mg daily, losartan 50 mg daily, Effient 10 mg daily, aspirin 81 mg daily and atorvastatin 40 mg twice weekly. DISPOSITION: The patient will follow up with myself in three months. <ELECTRONICALLY SIGNED> By: Lorne Licona MD, [facility] 05/06/19 0749 0937 0944Lorne Licona MD, FACC /nt
== END 2019-04-25 11:07 | disposition home or self-care (01) ==
LOC: M.CL 10:14 → M.TBA-CV 14:03 → M.2W 14:27
PROVIDERS: Internal Medicine; ADMIT Internal Medicine Cardiovascular Disease
DX: I25.110 Atherosclerotic heart disease of native coronary artery with unstable angina pectoris (principal); I10 Essential (primary) hypertension; E78.5 Hyperlipidemia, unspecified; E11.9 Type 2 diabetes mellitus without complications; E78.00 Pure hypercholesterolemia, unspecified; Z79.82 Long term (current) use of aspirin; Z79.899 Other long term (current) drug therapy